=== PATIENT | female | born 1965 | race Two or more races ===

== ENCOUNTER → 2025-02-02 12:02 | Outpatient (BNVA) | payer OTHER, SELFPAY | PROVIDERS: Visit Provider Physician Assistant Medical | DX: S80.12XA Contusion of left lower leg, initial encounter (principal); W18.09XA Striking against other object with subsequent fall, initial encounter | CPT/HCPCS: 73590; 99203 ==

== ENCOUNTER → 2025-02-08 13:45 | Outpatient (BNVA) | payer OTHER, SELFPAY | PROVIDERS: Visit Provider Emergency Medicine | DX: S80.212A Abrasion, left knee, initial encounter (principal); L08.89 Other specified local infections of the skin and subcutaneous tissue; W18.09XA Striking against other object with subsequent fall, initial encounter; Z02.79 Encounter for issue of other medical certificate | CPT/HCPCS: 99213 ==